=== PATIENT | male | born 1960 | race African-American/Black ===

== ENCOUNTER 2019-08-14 15:44 | Inpatient (IN) | payer MEDICAID ==
[~2019-08-14] VITALS: Ht 182.9 cm; Wt 84.8 kg
[2019-08-14 18:58] LABS: BASOPHILS % 0.6 % (0.0-2.0); EOSINOPHILS % 0.8 % (0.0-5.0); HEMATOCRIT. 38.1 % (42.0-52.0); HEMOGLOBIN. 12.6 g/dL (14.0-18.0); LYMPHOCYTES % 15.3 % (20.0-50.0); MEAN CORPUSCULAR HEMOGLOBIN 27.2 pg (28.0-32.0); MEAN CORPUSCULAR VOLUME 82.3 fL (80.0-94.0); MEAN PLATELET VOLUME 8.5 fl (7.4-10.4); MONOCYTES % 7.3 % (2.0-8.0); PLATELET 294 x1000/uL (130-400); RED BLOOD CELL COUNT 4.63 mill/uL (4.7-6.1); RED CELL DISTRIBUTION WIDTH 13.1 % (11.6-14.6)
[2019-08-14 19:03] LABS: INR 1.2; PROTHROMBIN TIME 11.9 sec (9.6-11.0)
[2019-08-14 19:04] LABS: CHLORIDE 104 mEq/L (98-107)
[2019-08-14 19:08] LABS: ETHANOL BLOOD < 10 mg/dL
[2019-08-14 19:11] LABS: LDL CHOLESTEROL 114 mg/dL (5-100)
[2019-08-14] MEDS ORDERED: ACETAMINOPHEN 325MG TABLET PO PRN (20:15)
[2019-08-14] MEDS ORDERED: IPRATROPIUM/ALBUTEROL 0.5-3(2.5)MG/3ML NEB NEB PRN (20:15)
[2019-08-14] MEDS ORDERED: NITROGLYCERIN 0.4MG TABLET SL SL PRN (20:15)
[2019-08-14] MEDS ORDERED: ASPIRIN 325MG EC TABLET PO ONE (20:15)
[2019-08-14] MEDS ORDERED: MAGNESIUM/ALUMINUM HYDROXIDE/SIMETHICONE 30ML UDC PO PRN (20:15)
[2019-08-14] MEDS ORDERED: GUAIFENESIN 200MG/10ML SUGAR FREE UDC PO PRN (20:15)
[2019-08-14] MEDS ORDERED: DEXTROSE 50% WATER 50ML SYRINGE IV PRN (20:15)
[2019-08-14] MEDS ORDERED: KETOROLAC 15MG/ML VIAL IV PRN (20:15)
[2019-08-14] MEDS ORDERED: ONDANSETRON HCL 4MG/2ML INJ IV PRN (20:15)
[2019-08-14] MEDS ORDERED: DOCUSATE SODIUM 100MG CAPSULE PO PRN (20:15)
[2019-08-14] MEDS ORDERED: ZOLPIDEM TARTRATE 5MG TABLET PO PRN (20:15)
[2019-08-14 20:50] LABS: CLARITY URINE CLEAR (CLEAR); COLOR URINE YELLOW (YELLOW); KETONES URINE TRACE (NEGATIVE); LEUKOCYTE ESTERASE URINE NEGATIVE (NEGATIVE); NITRITE URINE NEGATIVE (NEGATIVE); OCCULT BLOOD URINE 1+ (NEGATIVE); PH URINE 5.5 (4.5-8.0); PROTEIN URINE 1+ (NEGATIVE); SPECIFIC GRAVITY URINE 1.023 (1.005-1.030)
[2019-08-14] MEDS ORDERED: LISINOPRIL 20MG TABLET PO SCH (21:00)
[2019-08-14 21:26] LABS: *AMPHETAMINES SCREEN URINE NEGATIVE (NEGATIVE); *COCAINE SCREEN URINE PRESUMTIVE POSITIVE (NEGATIVE); METHADONE URINE SCREEN NEGATIVE (NEGATIVE)
[2019-08-14 21:27] LABS: *BARBITURATES SCREEN URINE NEGATIVE (NEGATIVE); *BENZODIAZEPINES SCREEN URINE NEGATIVE (NEGATIVE); CANNABINOID URINE SCREEN NEGATIVE (NEGATIVE); OPIATES URINE SCREEN NEGATIVE (NEGATIVE); PHENCYCLIDINE URINE SCREEN NEGATIVE (NEGATIVE)
[2019-08-14 23:45] LABS: FOLIC ACID (FOLATE) SERUM 16.3 ng/mL (>5.38)
[2019-08-15] VITALS: BP 143/86
[2019-08-15 04:00] VITALS: BP 158/96
[2019-08-15] MEDS: BLOOD SUGAR DIAGNOSTIC STRIP TEST SCH ×4 (06:08→23:54)
[2019-08-15] MEDS: INSULIN LISPRO 100 UNITS/ML SUBCUT SCH ×4 (07:50→23:54)
[2019-08-15 08:00] VITALS: BP 158/93
[2019-08-15] MEDS: CLOPIDOGREL 75MG TABLET PO SCH (09:47)
[2019-08-15] MEDS: FAMOTIDINE 20MG TABLET PO SCH ×2 (09:48→23:49)
[2019-08-15] MEDS: ENOXAPARIN 40MG/0.4ML SYR SUBCUT SCH (09:49)
[2019-08-15 12:00] VITALS: BP 161/96
[2019-08-15] MEDS: CLONIDINE 0.1MG TABLET PO PRN ×2 (12:57→23:50)
[2019-08-15 16:00] VITALS: BP 146/94
[2019-08-15] MEDS: LACTULOSE 20G/30ML UDC PO SCH ×3 (17:35→21:00)
[2019-08-15] MEDS: FOLIC ACID 1MG TABLET PO SCH (17:36)
[2019-08-15] MEDS: DOCUSATE SODIUM 100MG CAPSULE PO SCH (17:36)
[2019-08-15] MEDS: FERROUS SULFATE 325MG TABLET PO SCH ×2 (17:36→17:40)
[2019-08-15] MEDS: POLYETHYLENE GLYCOL 3350 (17GM) 1 DOSE PACK PO SCH (17:38)
[2019-08-15] MEDS: CYANOCOBALAMIN 1000MCG/ML VIAL IM SCH (17:39)
[2019-08-15 20:00] VITALS: BP 153/100
[2019-08-15] MEDS ORDERED: IOHEXOL-350 100 ML BOTTLE ONE (23:18)
[2019-08-15] MEDS: ATORVASTATIN CALCIUM 10MG TABLET PO SCH (23:49)
[2019-08-16] VITALS: BP 160/101
[2019-08-16 04:00] VITALS: BP 146/92
[2019-08-16] MEDS: BLOOD SUGAR DIAGNOSTIC STRIP TEST SCH ×4 (06:53→21:05)
[2019-08-16] MEDS: INSULIN LISPRO 100 UNITS/ML SUBCUT SCH ×4 (07:47→21:05)
[2019-08-16 08:35] VITALS: BP 149/90
[2019-08-16] MEDS: FERROUS SULFATE 325MG TABLET PO SCH ×3 (08:48→18:20)
[2019-08-16] MEDS: DOCUSATE SODIUM 100MG CAPSULE PO SCH ×2 (09:00→16:51)
[2019-08-16] MEDS: POLYETHYLENE GLYCOL 3350 (17GM) 1 DOSE PACK PO SCH (09:00)
[2019-08-16] MEDS: CLOPIDOGREL 75MG TABLET PO SCH (09:20)
[2019-08-16] MEDS: CLONIDINE 0.1MG TABLET PO PRN (09:20)
[2019-08-16] MEDS: CYANOCOBALAMIN 1000MCG/ML VIAL IM SCH (09:20)
[2019-08-16] MEDS: FOLIC ACID 1MG TABLET PO SCH (09:20)
[2019-08-16] MEDS: FAMOTIDINE 20MG TABLET PO SCH ×2 (09:20→21:05)
[2019-08-16] MEDS: ENOXAPARIN 40MG/0.4ML SYR SUBCUT SCH (09:21)
[2019-08-16 12:34] VITALS: BP 145/80
[2019-08-16 16:07] VITALS: BP 150/70
[2019-08-16 18:56] LABS: T4 FREE 0.9 ng/dL (0.76-1.46)
[2019-08-16 20:00] VITALS: BP 152/89
[2019-08-16] MEDS: ATORVASTATIN CALCIUM 10MG TABLET PO SCH (21:05)
[2019-08-17] VITALS (7 sets, daily range): BP systolic 138–166; BP diastolic 71–99
[2019-08-17] MEDS: CLONIDINE 0.1MG TABLET PO PRN ×2 (01:12→20:32)
[2019-08-17] MEDS: BLOOD SUGAR DIAGNOSTIC STRIP TEST SCH ×4 (07:05→20:39)
[2019-08-17] MEDS: INSULIN LISPRO 100 UNITS/ML SUBCUT SCH ×4 (07:39→20:34)
[2019-08-17] MEDS: POLYETHYLENE GLYCOL 3350 (17GM) 1 DOSE PACK PO SCH (09:05)
[2019-08-17] MEDS: CYANOCOBALAMIN 1000MCG/ML VIAL IM SCH (09:05)
[2019-08-17] MEDS: FAMOTIDINE 20MG TABLET PO SCH ×2 (09:08→20:32)
[2019-08-17] MEDS: FERROUS SULFATE 325MG TABLET PO SCH ×3 (09:08→16:59)
[2019-08-17] MEDS: FOLIC ACID 1MG TABLET PO SCH ×2 (09:08)
[2019-08-17] MEDS: DOCUSATE SODIUM 100MG CAPSULE PO SCH ×2 (09:08→16:59)
[2019-08-17] MEDS: ENOXAPARIN 40MG/0.4ML SYR SUBCUT SCH (09:09)
[2019-08-17] MEDS: CLOPIDOGREL 75MG TABLET PO SCH (09:09)
[2019-08-17] MEDS: THIAMINE HCL 100MG TABLET PO SCH (09:13)
[2019-08-17] MEDS: MULTIVITAMINS,THER W-MINERALS TABLET PO SCH (09:13)
[2019-08-17] MEDS: ATORVASTATIN CALCIUM 10MG TABLET PO SCH (20:32)
[2019-08-18 03:56] VITALS: BP 141/94
[2019-08-18] MEDS: CLONIDINE 0.1MG TABLET PO PRN (04:13)
[2019-08-18] MEDS: BLOOD SUGAR DIAGNOSTIC STRIP TEST SCH ×4 (06:22→21:21)
[2019-08-18] MEDS: CLOPIDOGREL 75MG TABLET PO SCH (08:40)
[2019-08-18] MEDS: THIAMINE HCL 100MG TABLET PO SCH (08:41)
[2019-08-18 08:42] VITALS: BP 150/83
[2019-08-18] MEDS: DOCUSATE SODIUM 100MG CAPSULE PO SCH ×2 (08:42→16:39)
[2019-08-18] MEDS: FERROUS SULFATE 325MG TABLET PO SCH ×3 (08:42→16:39)
[2019-08-18] MEDS: MULTIVITAMINS,THER W-MINERALS TABLET PO SCH (08:42)
[2019-08-18] MEDS: FAMOTIDINE 20MG TABLET PO SCH ×2 (08:42→21:21)
[2019-08-18] MEDS: CYANOCOBALAMIN 1000MCG/ML VIAL IM SCH (08:44)
[2019-08-18] MEDS: FOLIC ACID 1MG TABLET PO SCH (08:44)
[2019-08-18] MEDS: POLYETHYLENE GLYCOL 3350 (17GM) 1 DOSE PACK PO SCH (08:44)
[2019-08-18] MEDS: INSULIN LISPRO 100 UNITS/ML SUBCUT SCH ×4 (08:46→21:21)
[2019-08-18] MEDS: ENOXAPARIN 40MG/0.4ML SYR SUBCUT SCH (08:52)
[2019-08-18 11:55] VITALS: BP 130/86
[2019-08-18 15:51] VITALS: BP 150/85
[2019-08-18 20:00] VITALS: BP 136/84
[2019-08-18] MEDS: ATORVASTATIN CALCIUM 10MG TABLET PO SCH (21:21)
[2019-08-19] VITALS: BP 152/87
[2019-08-19 04:00] VITALS: BP 145/92
[2019-08-19] MEDS: BLOOD SUGAR DIAGNOSTIC STRIP TEST SCH ×4 (06:26→21:22)
[2019-08-19 08:00] VITALS: BP 160/96
[2019-08-19] MEDS: ENOXAPARIN 40MG/0.4ML SYR SUBCUT SCH (08:51)
[2019-08-19] MEDS: CYANOCOBALAMIN 1000MCG/ML VIAL IM SCH (08:51)
[2019-08-19] MEDS: MULTIVITAMINS,THER W-MINERALS TABLET PO SCH (08:51)
[2019-08-19] MEDS: POLYETHYLENE GLYCOL 3350 (17GM) 1 DOSE PACK PO SCH (08:52)
[2019-08-19] MEDS: FOLIC ACID 1MG TABLET PO SCH (08:52)
[2019-08-19] MEDS: THIAMINE HCL 100MG TABLET PO SCH (08:52)
[2019-08-19] MEDS: FAMOTIDINE 20MG TABLET PO SCH ×2 (08:52→21:28)
[2019-08-19] MEDS: FERROUS SULFATE 325MG TABLET PO SCH ×3 (08:52→17:00)
[2019-08-19] MEDS: DOCUSATE SODIUM 100MG CAPSULE PO SCH ×2 (08:52→17:00)
[2019-08-19] MEDS: CLOPIDOGREL 75MG TABLET PO SCH (08:52)
[2019-08-19] MEDS: INSULIN LISPRO 100 UNITS/ML SUBCUT SCH ×4 (08:58→21:38)
[2019-08-19 12:00] VITALS: BP 144/99
[2019-08-19 16:00] VITALS: BP 144/95
[2019-08-19] MEDS ORDERED: NA PHOS,M-B/NA PHOS,DI-BA ENEMA 118ML PR NR (16:00)
[2019-08-19] MEDS ORDERED: NA PHOS,M-B/NA PHOS,DI-BA ENEMA 118ML PR PRN (16:15)
[2019-08-19] MEDS: LACTULOSE 20G/30ML UDC PO SCH ×2 (17:00→21:00)
[2019-08-19 20:00] VITALS: BP 153/88
[2019-08-19] MEDS: ATORVASTATIN CALCIUM 10MG TABLET PO SCH (21:28)
[2019-08-20] VITALS: BP 152/89
[2019-08-20 04:00] VITALS: BP 155/97
[2019-08-20] MEDS: CLONIDINE 0.1MG TABLET PO PRN (05:32)
[2019-08-20 06:11] LABS: BASOPHILS % 0.6 % (0.0-2.0); EOSINOPHILS % 4.3 % (0.0-5.0); HEMATOCRIT. 41.7 % (42.0-52.0); HEMOGLOBIN. 13.6 g/dL (14.0-18.0); LYMPHOCYTES % 31.1 % (20.0-50.0); MEAN CORPUSCULAR HEMOGLOBIN 26.5 pg (28.0-32.0); MEAN PLATELET VOLUME 7.7 fl (7.4-10.4); MONOCYTES % 10.1 % (2.0-8.0); NEUTROPHILS % 53.9 % (40.0-76.0); PLATELET 316 x1000/uL (130-400); RED BLOOD CELL COUNT 5.14 mill/uL (4.7-6.1); RED CELL DISTRIBUTION WIDTH 13.1 % (11.6-14.6)
[2019-08-20 06:17] LABS: CHLORIDE 104 mEq/L (98-107)
[2019-08-20] MEDS: BLOOD SUGAR DIAGNOSTIC STRIP TEST SCH ×4 (06:57→21:02)
[2019-08-20] MEDS: FERROUS SULFATE 325MG TABLET PO SCH ×3 (06:58→18:09)
[2019-08-20] MEDS: INSULIN LISPRO 100 UNITS/ML SUBCUT SCH ×4 (07:08→21:30)
[2019-08-20 08:00] VITALS: BP 143/84
[2019-08-20] MEDS ORDERED: POLYETHYLENE GLYCOL 3350 (17GM) 1 DOSE PACK PO SCH (09:00)
[2019-08-20] MEDS: MULTIVITAMINS,THER W-MINERALS TABLET PO SCH (09:48)
[2019-08-20] MEDS: FAMOTIDINE 20MG TABLET PO SCH ×2 (09:48→21:02)
[2019-08-20] MEDS: DOCUSATE SODIUM 100MG CAPSULE PO SCH ×2 (09:48→18:09)
[2019-08-20] MEDS: FOLIC ACID 1MG TABLET PO SCH (09:48)
[2019-08-20] MEDS: CLOPIDOGREL 75MG TABLET PO SCH (09:49)
[2019-08-20] MEDS: POLYETHYLENE GLYCOL 3350 (17GM) 1 DOSE PACK PO SCH (09:49)
[2019-08-20] MEDS: THIAMINE HCL 100MG TABLET PO SCH (09:49)
[2019-08-20] MEDS: CYANOCOBALAMIN 1000MCG/ML VIAL IM SCH (09:49)
[2019-08-20] MEDS: ENOXAPARIN 40MG/0.4ML SYR SUBCUT SCH (09:50)
[2019-08-20] MEDS: LACTULOSE 20G/30ML UDC PO SCH (09:59)
[2019-08-20 12:00] VITALS: BP 143/81
[2019-08-20 16:00] VITALS: BP 137/78
[2019-08-20 20:15] VITALS: BP 132/77
[2019-08-20] MEDS: ATORVASTATIN CALCIUM 10MG TABLET PO SCH (21:02)
[2019-08-21 00:33] VITALS: BP 122/72
[2019-08-21 04:00] VITALS: BP 139/85
[2019-08-21] MEDS: BLOOD SUGAR DIAGNOSTIC STRIP TEST SCH ×4 (06:33→21:28)
[2019-08-21 08:00] VITALS: BP 139/84
[2019-08-21] MEDS: POLYETHYLENE GLYCOL 3350 (17GM) 1 DOSE PACK PO SCH (09:00)
[2019-08-21] MEDS: DOCUSATE SODIUM 100MG CAPSULE PO SCH ×2 (09:00→17:00)
[2019-08-21] MEDS: MULTIVITAMINS,THER W-MINERALS TABLET PO SCH (09:16)
[2019-08-21] MEDS: FAMOTIDINE 20MG TABLET PO SCH ×2 (09:17→21:27)
[2019-08-21] MEDS: FOLIC ACID 1MG TABLET PO SCH (09:17)
[2019-08-21] MEDS: CYANOCOBALAMIN 1000MCG/ML VIAL IM SCH (09:17)
[2019-08-21] MEDS: CLOPIDOGREL 75MG TABLET PO SCH (09:17)
[2019-08-21] MEDS: FERROUS SULFATE 325MG TABLET PO SCH ×3 (09:17→17:23)
[2019-08-21] MEDS: ENOXAPARIN 40MG/0.4ML SYR SUBCUT SCH (09:18)
[2019-08-21] MEDS: INSULIN LISPRO 100 UNITS/ML SUBCUT SCH ×4 (09:20→21:31)
[2019-08-21] MEDS: THIAMINE HCL 100MG TABLET PO SCH (09:23)
[2019-08-21 12:00] VITALS: BP 137/81
[2019-08-21 16:00] VITALS: BP 137/85
[2019-08-21 20:37] VITALS: BP 134/80
[2019-08-21] MEDS: ATORVASTATIN CALCIUM 10MG TABLET PO SCH (21:27)
[2019-08-22] VITALS (7 sets, daily range): BP systolic 123–144; BP diastolic 76–95
[2019-08-22] MEDS: BLOOD SUGAR DIAGNOSTIC STRIP TEST SCH ×4 (06:52→21:00)
[2019-08-22] MEDS: INSULIN LISPRO 100 UNITS/ML SUBCUT SCH ×4 (07:43→22:09)
[2019-08-22] MEDS: FOLIC ACID 1MG TABLET PO SCH (08:37)
[2019-08-22] MEDS: THIAMINE HCL 100MG TABLET PO SCH (08:37)
[2019-08-22] MEDS: MULTIVITAMINS,THER W-MINERALS TABLET PO SCH (08:37)
[2019-08-22] MEDS: FAMOTIDINE 20MG TABLET PO SCH ×2 (08:37→22:04)
[2019-08-22] MEDS: CLOPIDOGREL 75MG TABLET PO SCH (08:37)
[2019-08-22] MEDS: DOCUSATE SODIUM 100MG CAPSULE PO SCH ×2 (08:37→17:03)
[2019-08-22] MEDS: POLYETHYLENE GLYCOL 3350 (17GM) 1 DOSE PACK PO SCH (08:37)
[2019-08-22] MEDS: FERROUS SULFATE 325MG TABLET PO SCH ×3 (08:37→17:02)
[2019-08-22] MEDS: ENOXAPARIN 40MG/0.4ML SYR SUBCUT SCH (08:37)
[2019-08-22] MEDS: ATORVASTATIN CALCIUM 10MG TABLET PO SCH (22:03)
[2019-08-23 00:46] VITALS: BP 135/81
[2019-08-23 04:00] VITALS: BP 148/88
[2019-08-23] MEDS: BLOOD SUGAR DIAGNOSTIC STRIP TEST SCH (06:21)
[2019-08-23] MEDS: INSULIN LISPRO 100 UNITS/ML SUBCUT SCH (07:50)
[2019-08-23 08:00] VITALS: BP 133/78
[2019-08-23] MEDS: MULTIVITAMINS,THER W-MINERALS TABLET PO SCH (08:08)
[2019-08-23] MEDS: FOLIC ACID 1MG TABLET PO SCH (08:08)
[2019-08-23] MEDS: THIAMINE HCL 100MG TABLET PO SCH (08:08)
[2019-08-23] MEDS: CLOPIDOGREL 75MG TABLET PO SCH (08:08)
[2019-08-23] MEDS: DOCUSATE SODIUM 100MG CAPSULE PO SCH (08:08)
[2019-08-23] MEDS: FAMOTIDINE 20MG TABLET PO SCH (08:08)
[2019-08-23] MEDS: FERROUS SULFATE 325MG TABLET PO SCH (08:08)
[2019-08-23] MEDS: ENOXAPARIN 40MG/0.4ML SYR SUBCUT SCH (08:09)
[2019-08-23] MEDS: POLYETHYLENE GLYCOL 3350 (17GM) 1 DOSE PACK PO SCH (08:09)
[2019-08-28] MEDS ORDERED: CYANOCOBALAMIN 1000MCG/ML VIAL IM SCH (09:00)
== END 2019-08-23 10:13 | DRG 45 ==
LOC: ER 17:30 → 6WST 20:10 → EDBEDREQSVC 20:23 → EDBEDREQTM 20:23 → EDBEDREQ 20:23 → ENRESERV 23:11
PROVIDERS: ADMIT Internal Medicine; ATTEND Internal Medicine
DX: I63.9 Cerebral infarction, unspecified (principal); E11.65 Type 2 diabetes mellitus with hyperglycemia; E87.1 Hypo-osmolality and hyponatremia; I11.9 Hypertensive heart disease without heart failure; R13.10 Dysphagia, unspecified; G81.91 Hemiplegia, unspecified affecting right dominant side; G81.94 Hemiplegia, unspecified affecting left nondominant side; R41.4 Neurologic neglect syndrome; D50.9 Iron deficiency anemia, unspecified; F10.20 Alcohol dependence, uncomplicated; F14.10 Cocaine abuse, uncomplicated; E53.8 Deficiency of other specified B group vitamins; R47.01 Aphasia; R47.1 Dysarthria and anarthria; I63.89 Other cerebral infarction; R26.9 Unspecified abnormalities of gait and mobility
CPT/HCPCS: 36415; 70496; 70498; 70544; 70553; 71045; 80048; 80061; 80305; 80320; 81003; 82306; 82607; 82746; 82962; 83036; 83540; 83550; 83721; 84439; 84443; 84481; 84484; 92523; 92610; 93005; 93306; 93880; 97162; 97166; 97530; 97535; 99285; J1650; J1815; J3420; Q9967; A4315; G0480

== ENCOUNTER 2020-03-26 19:32 | Inpatient (IN) | payer MEDICAID ==
[~2020-03-26] VITALS: Ht 175.3 cm; Wt 68.5 kg
[2020-03-26] MEDS ORDERED: SODIUM CHLORIDE 0.9% 1,000 ML IV ONE (19:53)
[2020-03-26 20:34] LABS: BASOPHILS % 0.5 % (0.0-2.0); EOSINOPHILS % 1.9 % (0.0-5.0); HEMATOCRIT. 42.3 % (42.0-52.0); HEMOGLOBIN. 14.3 g/dL (14.0-18.0); LYMPHOCYTES % 25.4 % (20.0-50.0); MEAN CORPUSCULAR HEMOGLOBIN 27.7 pg (28.0-32.0); MEAN CORPUSCULAR VOLUME 81.7 fL (80.0-94.0); MEAN PLATELET VOLUME 8.2 fl (7.4-10.4); MONOCYTES % 8.2 % (2.0-8.0); PLATELET 257 x1000/uL (130-400); RED BLOOD CELL COUNT 5.18 mill/uL (4.7-6.1); RED CELL DISTRIBUTION WIDTH 13.7 % (11.6-14.6)
[2020-03-26 20:40] LABS: CHLORIDE 104 mEq/L (98-107)
[2020-03-26 20:44] LABS: ETHANOL BLOOD < 10 mg/dL
[2020-03-26] MEDS ORDERED: IOHEXOL-350 100 ML BOTTLE ONE (21:00)
[2020-03-26] MEDS ORDERED: ASPIRIN 325MG TABLET PO ONE (22:45)
[2020-03-27] VITALS (13 sets, daily range): BP systolic 137–165; BP diastolic 84–100
[2020-03-27 00:49] LABS: *AMPHETAMINES SCREEN URINE NEGATIVE (NEGATIVE)
[2020-03-27 00:50] LABS: *BARBITURATES SCREEN URINE NEGATIVE (NEGATIVE); *BENZODIAZEPINES SCREEN URINE NEGATIVE (NEGATIVE); *COCAINE SCREEN URINE PRESUMTIVE POSITIVE (NEGATIVE); METHADONE URINE SCREEN NEGATIVE (NEGATIVE); OPIATES URINE SCREEN NEGATIVE (NEGATIVE); PHENCYCLIDINE URINE SCREEN NEGATIVE (NEGATIVE)
[2020-03-27 00:51] LABS: CANNABINOID URINE SCREEN NEGATIVE (NEGATIVE)
[2020-03-27] MEDS ORDERED: DEXTROSE 50% WATER 50ML SYRINGE IV PRN (05:15)
[2020-03-27 07:42] LABS: BASOPHILS % 0.5 % (0.0-2.0); HEMATOCRIT. 41.1 % (42.0-52.0); HEMOGLOBIN. 13.9 g/dL (14.0-18.0); LYMPHOCYTES % 33.5 % (20.0-50.0); MEAN CORPUSCULAR HEMOGLOBIN 27.6 pg (28.0-32.0); MEAN CORPUSCULAR VOLUME 81.3 fL (80.0-94.0); MEAN PLATELET VOLUME 8.2 fl (7.4-10.4); MONOCYTES % 9.1 % (2.0-8.0); NEUTROPHILS % 53.9 % (40.0-76.0); PLATELET 241 x1000/uL (130-400); RED BLOOD CELL COUNT 5.05 mill/uL (4.7-6.1); RED CELL DISTRIBUTION WIDTH 13.6 % (11.6-14.6)
[2020-03-27 07:45] LABS: CHLORIDE 106 mEq/L (98-107)
[2020-03-27] MEDS: BLOOD SUGAR DIAGNOSTIC STRIP TEST SCH ×4 (08:00→21:29)
[2020-03-27] MEDS: INSULIN LISPRO 100 UNITS/ML SUBCUT SCH ×4 (08:00→21:29)
[2020-03-27] MEDS ORDERED: INSULIN LISPRO 100 UNITS/ML SUBCUT SCH (08:00)
[2020-03-27] MEDS ORDERED: ASPIRIN 81MG TABLET PO SCH (09:00)
[2020-03-27] MEDS: CLOPIDOGREL 75MG TABLET PO SCH (10:52)
[2020-03-27 12:52] LABS: T4 FREE 0.88 ng/dL (0.76-1.46)
[2020-03-27] MEDS: THIAMINE HCL 100MG TABLET PO SCH (16:31)
[2020-03-27] MEDS: NICOTINE 7MG PATCH TD SCH (16:31)
[2020-03-27] MEDS: FOLIC ACID 1MG TABLET PO SCH (16:31)
[2020-03-27] MEDS: ATORVASTATIN CALCIUM 20MG TABLET PO SCH (21:28)
[2020-03-28] VITALS (10 sets, daily range): BP systolic 143–170; BP diastolic 89–103
[2020-03-28] MEDS: BLOOD SUGAR DIAGNOSTIC STRIP TEST SCH ×4 (07:30→21:17)
[2020-03-28] MEDS: INSULIN LISPRO 100 UNITS/ML SUBCUT SCH ×4 (08:00→21:52)
[2020-03-28] MEDS: NICOTINE 7MG PATCH TD SCH (08:42)
[2020-03-28] MEDS: FOLIC ACID 1MG TABLET PO SCH (08:42)
[2020-03-28] MEDS: THIAMINE HCL 100MG TABLET PO SCH (08:42)
[2020-03-28] MEDS: CLOPIDOGREL 75MG TABLET PO SCH (08:42)
[2020-03-28] MEDS: CLONIDINE 0.1MG TABLET PO PRN (08:42)
[2020-03-28] MEDS: ATORVASTATIN CALCIUM 20MG TABLET PO SCH (20:43)
[2020-03-29] VITALS (12 sets, daily range): BP systolic 119–165; BP diastolic 67–99
[2020-03-29] MEDS: BLOOD SUGAR DIAGNOSTIC STRIP TEST SCH ×3 (05:31→19:51)
[2020-03-29] MEDS: CLONIDINE 0.1MG TABLET PO PRN (05:31)
[2020-03-29 05:57] LABS: CHLORIDE 107 mEq/L (98-107)
[2020-03-29 06:08] LABS: BASOPHILS % 0.5 % (0.0-2.0); EOSINOPHILS % 3.3 % (0.0-5.0); HEMATOCRIT. 41.7 % (42.0-52.0); LYMPHOCYTES % 29.6 % (20.0-50.0); MEAN CORPUSCULAR HEMOGLOBIN 27.3 pg (28.0-32.0); MEAN CORPUSCULAR VOLUME 81.4 fL (80.0-94.0); MEAN PLATELET VOLUME 8.1 fl (7.4-10.4); MONOCYTES % 9.1 % (2.0-8.0); NEUTROPHILS % 57.5 % (40.0-76.0); PLATELET 259 x1000/uL (130-400); RED BLOOD CELL COUNT 5.12 mill/uL (4.7-6.1); RED CELL DISTRIBUTION WIDTH 13.8 % (11.6-14.6)
[2020-03-29] MEDS: INSULIN LISPRO 100 UNITS/ML SUBCUT SCH ×3 (08:00→21:00)
[2020-03-29] MEDS: CLOPIDOGREL 75MG TABLET PO SCH (08:48)
[2020-03-29] MEDS: FOLIC ACID 1MG TABLET PO SCH (08:48)
[2020-03-29] MEDS: THIAMINE HCL 100MG TABLET PO SCH (08:48)
[2020-03-29] MEDS: NICOTINE 7MG PATCH TD SCH (08:49)
[2020-03-29] MEDS: ATORVASTATIN CALCIUM 20MG TABLET PO SCH (19:50)
[2020-03-30] VITALS (10 sets, daily range): BP systolic 129–164; BP diastolic 67–99
[2020-03-30 06:20] LABS: CHLORIDE 106 mEq/L (98-107)
[2020-03-30 06:27] LABS: BASOPHILS % 0.4 % (0.0-2.0); EOSINOPHILS % 3.7 % (0.0-5.0); HEMATOCRIT. 41.7 % (42.0-52.0); HEMOGLOBIN. 13.9 g/dL (14.0-18.0); LYMPHOCYTES % 28.1 % (20.0-50.0); MEAN CORPUSCULAR HEMOGLOBIN 27.2 pg (28.0-32.0); MEAN CORPUSCULAR VOLUME 81.8 fL (80.0-94.0); MEAN PLATELET VOLUME 7.9 fl (7.4-10.4); MONOCYTES % 7.7 % (2.0-8.0); NEUTROPHILS % 60.1 % (40.0-76.0); PLATELET 268 x1000/uL (130-400); RED BLOOD CELL COUNT 5.09 mill/uL (4.7-6.1); RED CELL DISTRIBUTION WIDTH 13.4 % (11.6-14.6)
[2020-03-30] MEDS: INSULIN LISPRO 100 UNITS/ML SUBCUT SCH ×3 (07:57→17:13)
[2020-03-30] MEDS: BLOOD SUGAR DIAGNOSTIC STRIP TEST SCH ×3 (07:57→17:13)
[2020-03-30] MEDS: THIAMINE HCL 100MG TABLET PO SCH (08:35)
[2020-03-30] MEDS: NICOTINE 7MG PATCH TD SCH (08:35)
[2020-03-30] MEDS: CLOPIDOGREL 75MG TABLET PO SCH (08:35)
[2020-03-30] MEDS: FOLIC ACID 1MG TABLET PO SCH (08:35)
[2020-03-30] MEDS: LACTULOSE 20G/30ML UDC PO SCH ×2 (14:03→17:00)
[2020-03-30] MEDS ORDERED: FOLI-43 PO (15:01)
[2020-03-30] MEDS ORDERED: ATOR20TA PO (15:01)
[2020-03-30] MEDS ORDERED: COR3 PO (15:01)
[2020-03-30] MEDS ORDERED: THIA100T72 PO (15:01)
[2020-03-30] MEDS ORDERED: NICO-786 TD (15:01)
[2020-03-30] MEDS ORDERED: CLOP75TA15 PO (15:01)
[2020-03-30] MEDS ORDERED: LOSA25TA3 PO (15:01)
[2020-03-30] MEDS ORDERED: CARVEDILOL 3.125 MG TABLET PO SCH (21:00)
[2020-03-31] MEDS ORDERED: LOSARTAN POTASSIUM 25 MG TABLET PO SCH (09:00)
== END 2020-03-30 18:13 | DRG 45 ==
LOC: ER 19:32 → 5EST 21:48 → EDBEDREQSVC 21:53 → EDBEDREQTM 21:53 → EDBEDREQ 21:53 → ENRESERV 23:11
PROVIDERS: ADMIT Internal Medicine; ATTEND Internal Medicine
DX: I63.9 Cerebral infarction, unspecified (principal); E11.65 Type 2 diabetes mellitus with hyperglycemia; I11.0 Hypertensive heart disease with heart failure; I42.9 Cardiomyopathy, unspecified; I50.22 Chronic systolic (congestive) heart failure; E87.6 Hypokalemia; M48.02 Spinal stenosis, cervical region; M47.812 Spondylosis without myelopathy or radiculopathy, cervical region; D64.9 Anemia, unspecified; E78.5 Hyperlipidemia, unspecified; F14.10 Cocaine abuse, uncomplicated; I69.320 Aphasia following cerebral infarction; Z72.0 Tobacco use; Z79.02 Long term (current) use of antithrombotics/antiplatelets; Z91.14 Patient's other noncompliance with medication regimen; I69.351 Hemiplegia and hemiparesis following cerebral infarction affecting right dominant side; Z91.19 Patient's noncompliance with other medical treatment and regimen
CPT/HCPCS: 36415; 70496; 70498; 70551; 71045; 72141; 80048; 80053; 80061; 80305; 80320; 82607; 82746; 82962; 83036; 83735; 84439; 84443; 84481; 84484; 85025; 92523; 92610; 93005; 93306; 93970; 97110; 97116; 97162; 97166; 97530; 99285; J1815; J7030; Q9967; G0480